=== PATIENT | male | born 1945 | race Caucasian/White ===

== ENCOUNTER 2020-02-11 15:14 | Outpatient (CLI) | payer MEDICARE, OTHER ==
--- NOTE | 2020-02-11 16:02 | CT ---
CT chest with IV contrast HISTORY: Dyspnea. COMPARISON: 09/02/2019. FINDINGS: Lungs are slightly hyperinflated with scattered emphysematous change. Parenchymal scarring surrounding a bulla at the posterior aspect of the superior segment right lower lobe is stable. Calcified granulomata of the chest and abdomen are consistent with healed granulomatous disease. There is calcification within the coronary arteries and other arterial structures. Noncalcified plaqu e at the left subclavian artery results in a short segment focus of stenosis greater than 50%. No enlarged lymph nodes are apparent within the mediastinum. No pleural fluid or pneumothorax. Degenerative changes of the lumbar spine. Postoperative changes of the right shoulder. Electronic mon itoring device at the left anterior chest wall is again demonstrated. IMPRESSION : Mild emphysematous changes. Stable exam. No acute process is apparent. Atherosclerosis. Stenosis of the left subclavian artery.
== END 2020-02-11 15:15 | disposition home or self-care (01) ==
LOC: BICCT 15:14
PROVIDERS: ATTEND Internal Medicine Gastroenterology
DX: Z12.11 Encounter for screening for malignant neoplasm of colon (principal); K21.9 Gastro-esophageal reflux disease without esophagitis; R07.9 Chest pain, unspecified; R06.02 Shortness of breath; J43.9 Emphysema, unspecified; I25.10 Atherosclerotic heart disease of native coronary artery without angina pectoris; I70.90 Unspecified atherosclerosis; I77.1 Stricture of artery
CPT/HCPCS: 71260; 82565